=== PATIENT | male | born 1955 | race Caucasian/White ===

== ENCOUNTER → 2016-07-13 09:45 | Outpatient (CLI) | payer MEDICARE | END | disposition home or self-care (01) | LOC: D.CT 09:45 | DX: R91.8 Other nonspecific abnormal finding of lung field (principal) ==

== ENCOUNTER 2017-09-14 14:30 | Emergency (ER) | payer MEDICARE ==
[~2017-09-14] VITALS: Ht 182.9 cm; Wt 90.3 kg
[2017-09-14 14:36] VITALS: Ht 182.9 cm; Wt 90.3 kg
[2017-09-14 16:29] VITALS: BP 160/102
== END 2017-09-14 16:29 | disposition home or self-care (01) ==
LOC: D.ER 14:30
DX: G89.29 Other chronic pain (principal); F43.9 Reaction to severe stress, unspecified; J44.9 Chronic obstructive pulmonary disease, unspecified

== ENCOUNTER 2018-04-20 13:00 | Emergency (ER) | payer OTHER, MEDICARE, MEDICAID ==
[~2018-04-20] VITALS: Ht 182.9 cm; Wt 86.4 kg
[2018-04-20 13:21] VITALS: Ht 182.9 cm; Wt 86.4 kg
[2018-04-20] MEDS ORDERED: XANAX1 MG PO (13:23)
[2018-04-20] MEDS ORDERED: DICLOFENAC SODI50 MG PO (13:24)
[2018-04-20] MEDS ORDERED: VITAMIN D2000 UNIT PO (13:24)
[2018-04-20] MEDS ORDERED: VOLTAREN100 GM TOPICAL (13:24)
[2018-04-20] MEDS ORDERED: SYMBICORT 16010.2 GM INH (13:24)
[2018-04-20] MEDS ORDERED: GEMFIBROZIL600 MG PO (13:25)
[2018-04-20] MEDS ORDERED: GUAIFENESI100 MG/5 M PO (13:25)
[2018-04-20] MEDS ORDERED: NIACIN500 MG PO ×2 (13:26→13:27)
[2018-04-20] MEDS ORDERED: LIDODERM 5 %1 PATCH TRANSDERM (13:26)
[2018-04-20] MEDS ORDERED: SYNTHROID25 MCG PO (13:26)
[2018-04-20] MEDS ORDERED: OMEPRAZOLE20 M1 PO (13:27)
[2018-04-20] MEDS ORDERED: ZOLOFT100 MG PO (13:28)
[2018-04-20] MEDS ORDERED: DESERYL50 M2 PO (13:28)
[2018-04-20] MEDS ORDERED: LYRICA100 MG PO (13:28)
[2018-04-20] MEDS ORDERED: FISH OIL 1,0001 CA1 PO (13:28)
[2018-04-20] MEDS ORDERED: MULTI-DAY VITAM1 TAB PO (13:28)
[2018-04-20 14:03] LABS: UDS - AMPHET NEGATIVE QUAL (NEGATIVE); UDS - BARB NEGATIVE QUAL (NEGATIVE); UDS - BENZO POSITIVE QUAL (NEGATIVE); UDS - COCAINE NEGATIVE QUAL (NEGATIVE); UDS - OPIATE NEGATIVE QUAL (NEGATIVE); UDS - PCP NEGATIVE QUAL (NEGATIVE); UDS - THC NEGATIVE QUAL (NEGATIVE)
[2018-04-20 14:12] LABS: APPEARANCE CLEAR (CLEAR); BILIRUBIN NEGATIVE (NEGATIVE); COLOR YELLOW (YELLOW); GLUCOSE NEGATIVE (NEGATIVE); KETONE NEGATIVE (NEGATIVE); NITRITE NEGATIVE (NEGATIVE); PROTEIN NEGATIVE (NEGATIVE); UROBILINOGEN NORMAL (NORMAL)
[2018-04-20 14:53] LABS: BASOPHILS 0.7 % (0-2); EOSINOPHILS 3.7 % (0-7); HEMOGLOBIN 11.7 g/dL (13.5-17.5); IMMATURE GRANULOCYTES 0.2 % (0-5); LYMPHOCYTES 23.4 % (15-50); MCH 32.7 pg (26.0-34.0); MCHC 33.4 g/dL (31.0-37.0); MCV 97.8 fL (80.0-100.0); MEAN PLATELET VOLUME 9.5 fL (7.4-10.4); MONOCYTES 9.8 % (2-11); NEUTROPHILS 62.2 % (40-80); PLATELET COUNT 219 10x3/uL (130-400); RBC 3.58 10x6/uL (4.20-6.10); RDW 12.9 % (11.5-14.5); WBC 4.6 10x3/uL (4.8-10.8)
[2018-04-20 15:05] LABS: ALBUMIN 3.6 g/dL (3.4-5.0); ANION GAP 12.5 mmol/L (8-16); BILIRUBIN - TOTAL 0.26 mg/dL (0.2-1.3); CALCIUM 8.5 mg/dL (8.5-10.1); CARBON DIOXIDE 28.4 mmol/L (21.0-32.0); CREATININE - SERUM 1.1 mg/dL (0.6-1.3); MAGNESIUM - SERUM 1.9 mg/dL (1.8-2.4); POTASSIUM - SERUM 4.9 mmol/L (3.5-5.1)
[2018-04-20 23:26] VITALS: BP 115/70
== END 2018-04-20 23:26 ==
LOC: D.ER 13:00
PROVIDERS: Emergency Medicine
DX: R45.851 Suicidal ideations (principal)